=== PATIENT | female | born 1945 | race African-American/Black ===

== ENCOUNTER 2018-02-26 13:43 | Emergency (ER) | payer OTHER ==
[~2018-02-26] VITALS: Ht 157.5 cm; Wt 63.0 kg
[2018-02-26 15:14] VITALS: BP 140/61
== END 2018-02-26 15:37 | disposition home or self-care (01) ==
LOC: ER 13:43
DX: S60.222A Contusion of left hand, initial encounter (principal); S00.83XA Contusion of other part of head, initial encounter; W01.0XXA Fall on same level from slipping, tripping and stumbling without subsequent striking against object, initial encounter; Y92.89 Other specified places as the place of occurrence of the external cause; Y93.89 Activity, other specified; Y99.8 Other external cause status